=== PATIENT | female | born 1980 | race African-American/Black ===

== ENCOUNTER 2019-10-15 15:30 | Outpatient (CLI) | payer OTHER ==
[2019-10-15 16:42] VITALS: BP 105/58
[2019-10-15] MEDS ORDERED: LACTATED RINGERS 500 ML IV ONE (17:58)
[2019-10-15] MEDS ORDERED: LACTATED RINGERS 1,000 ML ONE (18:01)
[2019-10-15 19:41] LABS: Bacteria,Urine 1+ /HPF (Negative); Bilirubin,Urine NEG (Negative); Blood,Urine NEG (Negative); Color,Urine Straw (Yellow); Protein,Urine <15 mg/dL mg/dL (Negative); Urobilinogen,Urine < 2.0 mg/dL (<2.0); WBC,Urine < 1.0 /HPF (0.0-6.0)
== END 2019-10-15 21:20 | disposition home or self-care (01) ==
LOC: TRG 15:30 → APU 15:31 → TRG 21:20
PROVIDERS: ATTEND Obstetrics & Gynecology
DX: O62.9 Abnormality of forces of labor, unspecified (principal); O09.523 Supervision of elderly multigravida, third trimester; Z3A.34 34 weeks gestation of pregnancy
CPT/HCPCS: 59025; 81001; J7120; 96360

== ENCOUNTER 2019-12-01 13:49 | Inpatient (IN) | payer OTHER ==
[2019-12-01] MEDS ORDERED: ONDANSETRON 4 MG/2 ML INJ IV PRN (13:57)
[2019-12-01] MEDS ORDERED: ePHEDrine SULFATE 50 MG/1 ML INJ IV PRN (13:57)
[2019-12-01] MEDS ORDERED: TERBUTALINE 1 MG/1 ML INJ SUB-Q PRN (13:57)
[2019-12-01] MEDS ORDERED: LIDOCAINE (2%) 20 MG/1 ML VIAL 20 ML MDV INFILTRATI ONE ×2 (13:57→17:36)
[2019-12-01] MEDS ORDERED: AMPICILLIN/NS 2 GM/100 ML 2 GM/100 ML BAG IV ONE (13:57)
[2019-12-01] MEDS ORDERED: MINERAL OIL 30 ML ORAL LIQD PO PRN (13:57)
[2019-12-01] MEDS ORDERED: fentaNYL 100 MCG/2 ML INJ IV PRN (13:57)
[2019-12-01] MEDS ORDERED: BUTORPHANOL 2 MG/1 ML INJ IV PRN (13:57)
[2019-12-01] MEDS ORDERED: OXYTOCIN DRIP 30 UNITS/500 ML BAG IV SCH (14:00)
[2019-12-01] MEDS ORDERED: LACTATED RINGERS 1,000 ML IV SCH (14:00)
[2019-12-01 16:04] LABS: Hematocrit 38.7 % (30.3-42.9); Hemoglobin 13.2 gm/dl (10.1-14.3); Mean Corpuscular HGB Conc 34 % (30-34); Mean Corpuscular Volume 88 fl (79-97); Platelet Count 147 K/mm3 (140-440); Red Blood Count 4.39 M/mm3 (3.65-5.03); Red Cell Distribution Width 14.5 % (13.2-15.2)
--- NOTE | 2019-12-01 16:29 | History and Physical Report ---
History of Present Illness Date of examination: 12/01/19 Date of admission: 12/01/19 13:49 Chief complaint: Active labor; Post-date History of present illness: 39yo, @ 41 wks, initiated care with [facility] at 7.3 wks gestation. Her has been complicated by AMA and language barrier. She was seen earlier today in office with cervical exam of /, therefore sent to hospital for delivery. She reports +FM. Denies any VB or LOF. Labs: B+, antibody negative; PAP smear normal; rubella immune; VDRL non-reactive; urine culture screen negative; HBsAg negative; HIV negative; GC/Chlamydia/Trich negative; MSAFP/Multiple markers negative; 1 hr gtt: 119; GBS positive. Past History Past Medical History: no pertinent history Past Surgical History: no surgical history Family/Genetic History: none Social history: , lives with family, full code. denies: smoking, alcohol abuse, prescription drug abuse, IV drug use - Obstetrical History Expected Date of Delivery: 11/24/19 Actual Gestation: 41 Week(s) 0 Day(s) : 3 Para: 2 Hx # Term Pregnancies: 2 Spontaneous Abortions: 0 Induced : 0 Number of Living Children: 2 #1 Infant Gender: Female year: Method of Delivery: Vaginal Gestational age at delivery: 40 Complications: none #2 Infant Gender: Male year: Method of Delivery: Vaginal Complications: none Medications and Allergies Allergies Allergy/AdvReac Type Severity Reaction Status Date / Time No Known Allergies Allergy Unverified 10/15/19 17:48 Active Meds: Active Medications Butorphanol Tartrate (Stadol) 2 mg IV Q2H PRN PRN Reason: Pain , Severe (7-10) Ephedrine Sulfate (Ephedrine Sulfate) 10 mg IV Q2M PRN PRN Reason: Hypotension Fentanyl (Sublimaze) 100 mcg IV Q2H PRN PRN Reason: Pain,Severe (7-10) LABOR PAIN Oxytocin/Sodium Chloride (Pitocin/Ns 30 Unit/500ml) 30 units in 500 mls @ 2 mls/hr IV TITR VEENA; Protocol Lactated Ringer's (Lactated Ringers) 1,000 mls @ 125 mls/hr IV DIRECT VEENA Ampicillin Sodium (Ampicillin/Ns 1 Gm/50 Ml) 1 gm in 50 mls @ 100 mls/hr IV Q4HR VEENA; Protocol Mineral Oil (Mineral Oil) 30 ml PO QHS PRN PRN Reason: Constipation Ondansetron HCl (Zofran) 4 mg IV Q8H PRN PRN Reason: Nausea And Vomiting Terbutaline Sulfate (Brethine) 0.25 mg SUB-Q ONCE PRN PRN Reason: Hyperstimulation/Hypertonicity Review of Systems All systems: negative Genitourinary: contractions (irregular) Rectal Exam: deferred - Vital Signs Vital signs: Vital Signs Temp Pulse Resp BP Pulse Ox 98.8 F 77 16 113/82 99 12/01/19 14:51 12/01/19 14:51 12/01/19 14:51 12/01/19 14:51 12/01/19 14:51 Temp Pulse Resp BP Pulse Ox 98.8 F 66 16 113/82 99 12/01/19 14:51 12/01/19 16:20 12/01/19 14:51 12/01/19 14:57 12/01/19 16:20 - Physical Exam Breasts: Positive: normal Cardiovascular: Regular rate Lungs: Positive: Normal air movement Abdomen: Positive: other (gravid) Genitourinary (Female): Positive: normal external genitalia, normal perenium Vagina: Positive: normal moisture Uterus: Positive: enlarged (S<D) Extremities: Positive: normal Deep Tendon Reflex Grade: Normal +2 - Obstetrical FHR: category 1 Cervical Dilatation: 5.5 (vertex) Cervical Effacement Percentage: 80 station: -1 Uterine Contraction Pattern: Irregular Uterine Tone Measurement Phase: Resting Uterine Contraction Intensity: Mild Results Result Diagrams: 12/01/19 15:10 All other labs normal. Assessment and Plan - Patient Problems (1) Active labor at term Current Visit: Yes Status: Acute Plan to address problem: Expectant management until Abts given Initiate Pitocin after 2 doses of Abts given Pain meds as desired per orders Anticipate (2) GBS (group B Streptococcus carrier), +RV culture, currently Current Visit: Yes Status: Acute Plan to address problem: Initiate GBS protocol (3) AMA (advanced maternal age) multigravida 35+ Current Visit: Yes Status: Acute
[2019-12-01] MEDS ORDERED: AMPICILLIN/NS 1 GM/50 ML 1 GM/50 ML BAG IV SCH (18:00)
[2019-12-01] MEDS ORDERED: oxyCODONE /ACETAMINOPHEN 5-325MG TAB PO PRN (18:12)
[2019-12-01] MEDS ORDERED: PROMETHAZINE 25 MG TAB PO PRN (18:12)
[2019-12-01] MEDS ORDERED: LANOLIN/ZINC/DIMETHICONE (LANSINOH) 7 GM TP PRN (18:12)
[2019-12-01] MEDS ORDERED: MAGNESIUM HYDROXIDE (MOM) ORAL LIQD UDC PO PRN (18:12)
[2019-12-01] MEDS ORDERED: diphenhydrAMINE 25 MG CAP PO PRN (18:12)
[2019-12-01] MEDS ORDERED: WITCH HAZEL/ GLYCERIN PAD TP PRN (18:12)
--- NOTE | 2019-12-01 18:20 | Procedure Note ---
OB Delivery Note - Delivery Date of Delivery: 12/01/19 (1726) Surgeon: BRITTANY TRACY (CNM) Estimated blood loss: 300cc - Vaginal Delivery presentation: vertex Delivery position: OA (MICHAEL) Delivery induction: none Delivery augmentation: rupture of membranes (@ 1618, clear) Delivery monitor: external FHT, external uterine Route of delivery: Delivery placenta: spontaneous (1731, [place]) Delivery cord: nuchal cord (x1 reduced via [place] manuver) Episiotomy: none Delivery laceration: 2nd degree (perineum), other (left labial laceration) Delivery repair: vicryl (3.0 - SH) Anesthesia: local Delivery comments: of viable crying male infant placed directly to maternal abdomen. Cord double clamped, cut 's older sibling after cessation of pulsation. Placenta spontaneously delivered, disposed per hospital policy. Uterus firm @ U -3, hemostasis maintained. Perineum with 2nd degree laceration and left labial laceration, both repaired. Mother and baby safe, stable and left in care of RN. - Infant A at 1 minute: 8 at 5 minutes: 9 Gender: Male (Weight: 2788gms (6lbs 2ozs) 19 inches)
[2019-12-01] MEDS: IBUPROFEN 600 MG TAB PO SCH (23:46)
[2019-12-02] MEDS: IBUPROFEN 600 MG TAB PO SCH (05:45)
[2019-12-02 07:50] LABS: Hematocrit 35.4 % (30.3-42.9); Hemoglobin 12.3 gm/dl (10.1-14.3)
[2019-12-02] MEDS ORDERED: PRENATAL VIT27-FE FUMARATE-FOLIC ACID VIT TAB PO SCH (10:00)
--- NOTE | 2019-12-02 12:28 | Progress Note ---
Assessment and Plan A: PP Day#1 Stable P: Follow Routine Orders D/c Home today per patient request RTO in 6 Weeks Subjective - Subjective Date of service: 12/02/19 Patient reports: appetite normal, voiding normally, pain well controlled, ambul ating normally : doing well, bottle feeding Objective - Vital Signs Latest vital signs: Vital Signs Temp Pulse Resp BP BP Pulse Ox 12/02/19 12:23 97.6 F 18 110/68 12/02/19 10:26 20 12/02/19 07:50 97.4 F L 18 100/51 12/02/19 06:29 18 12/02/19 05:45 18 12/02/19 04:50 97.7 F 72 18 98/55 98 12/02/19 00:46 18 12/01/19 23:53 98.0 F 77 20 105/59 98 12/01/19 23:46 18 12/01/19 20:13 97.3 F L 71 18 123/66 99 12/01/19 19:17 73 98 12/01/19 19:16 90 86 12/01/19 19:13 70 111/68 12/01/19 19:12 72 99 12/01/19 19:08 68 116/74 12/01/19 19:07 70 99 12/01/19 19:03 73 125/76 12/01/19 19:02 75 99 12/01/19 18:58 68 124/68 12/01/19 18:57 98.0 F 69 12 124/68 99 12/01/19 18:53 72 107/68 12/01/19 18:52 72 98 12/01/19 18:49 84 119/58 91 12/01/19 18:47 78 99 12/01/19 18:43 68 127/59 12/01/19 18:42 71 99 12/01/19 18:38 71 128/63 12/01/19 18:37 69 99 12/01/19 18:33 72 134/64 12/01/19 18:32 68 99 12/01/19 18:28 82 128/63 12/01/19 18:27 78 99 12/01/19 18:23 77 126/60 12/01/19 18:22 73 99 12/01/19 18:18 78 122/58 12/01/19 18:17 73 98 10/06/20 18:13 78 129/58 12/01/19 18:12 85 99 12/01/19 18:08 72 137/60 12/01/19 18:04 74 138/63 12/01/19 18:03 72 155/65 12/01/19 17:59 75 148/64 12/01/19 17:53 81 154/65 12/01/19 17:48 75 124/67 12/01/19 17:43 79 133/63 12/01/19 17:35 72 128/60 100 12/01/19 17:30 65 100 12/01/19 17:25 76 100 12/01/19 17:20 78 100 12/01/19 17:15 71 100 12/01/19 17:10 69 98 12/01/19 17:05 72 99 12/01/19 17:00 72 99 12/01/19 16:55 74 155/68 98 12/01/19 16:50 69 98 12/01/19 16:45 68 98 12/01/19 16:40 69 98 12/01/19 16:35 81 98 12/01/19 16:30 75 98 12/01/19 16:25 68 99 12/01/19 16:20 66 99 12/01/19 16:15 69 99 12/01/19 16:10 68 98 12/01/19 16:05 70 98 12/01/19 16:00 74 97 12/01/19 15:55 71 98 12/01/19 15:50 86 98 12/01/19 15:45 89 98 12/01/19 15:40 75 99 12/01/19 15:35 78 99 12/01/19 15:30 76 99 12/01/19 15:25 84 98 12/01/19 15:20 72 98 12/01/19 15:15 79 98 12/01/19 15:10 73 98 12/01/19 15:05 71 98 12/01/19 15:00 75 99 12/01/19 14:57 71 113/82 12/01/19 14:51 98.8 F 77 16 113/82 99 Intake and Output 12/01/19 12/02/19 12/02/19 22:59 06:59 14:59 Intake Total 480 360 Output Total 600 Balance -120 360 Intake: Oral 360 Intake, Free Water 120 360 Output: Urine 600 Void 600 Other: Total, Intake Amount 360 Total, Output Amount 600 # Voids Void 1 1 Estimated Blood Loss 300 - Exam Breasts: Present: normal Cardiovascular: Present: Regular rate Lungs: Present: Clear to auscultation, Normal air movement Abdomen: Present: normal appearance, soft, normal bowel sounds Uterus: Present: normal, firm, fundal height below umbilicus Extremities: Present: normal
--- NOTE | 2019-12-02 12:29 | Discharge Summary ---
Providers - Providers Date of Admission: 12/01/19 13:49 Date of discharge: 12/02/19 Attending physician: YOANNA ADAMS JR, MD 12/01/19 18:13 Consult to Television Analyzer [CONS] Routine Reason For Exam: assistance with , SNS Primary care physician: YOANNA ADAMS JR, MD Hospitalization Reason for admission: active labor Delivery: Episiotomy: none Laceration: 2nd degree Other procedures: none complications: none Discharge diagnosis: IUP at term delivered Munith baby: male Condition at discharge: Good Disposition: DC-01 TO HOME OR SELFCARE Plan - Provider Discharge Summary Activity: routine, no sex for 6 weeks, no heavy lifting 4 weeks, no strenuous exercise Diet: routine Instructions: routine Additional instructions: [] Smoking cessation referral if applicable(refer to patient education folder for contact #) [] Refer to [facility] Booklet Call your doctor immediately for: * Fever > 100.5 * Heavy vaginal bleeding ( >1 pad per hour) * Severe persistent headache * Shortness of breath * Reddened, hot, painful area to leg or breast * Drainage or odor from incision. * Keep incision clean and dry at all times and follow doctor's instructions regarding bathing/showering - Follow up plan Follow up: YOANNA ADAMS JR, MD [Primary Care Provider] - 6 Weeks
[2019-12-02 21:12] VITALS: BP 102/66
== END 2019-12-02 21:40 | disposition home or self-care (01) | DRG 775 ==
LOC: LD 13:49 → OB 20:44
PROVIDERS: ADMIT Obstetrics & Gynecology; ATTEND Obstetrics & Gynecology
PROC: 10E0XZZ Delivery of Products of Conception, External Approach (ICD-10-PCS; principal; 2019-12-01)
PROC: 0KQM0ZZ Repair Perineum Muscle, Open Approach (ICD-10-PCS; 2019-12-01)
DX: O48.0 Post-term pregnancy (principal); Z3A.41 41 weeks gestation of pregnancy; O09.523 Supervision of elderly multigravida, third trimester; Z37.0 Single live birth; O99.824 Streptococcus B carrier state complicating childbirth; O69.81X0 Labor and delivery complicated by cord around neck, without compression, not applicable or unspecified; O70.1 Second degree perineal laceration during delivery; Z20.828 Contact with and (suspected) exposure to other viral communicable diseases
CPT/HCPCS: 36415; 85014; 85018; 85027; 86850; 86900; 86901; G0378; J0290; J7120; U0003-CS